=== PATIENT | female | born 1995 | race Caucasian/White ===

== ENCOUNTER 2017-04-10 20:35 | Inpatient (IN) | END 2017-04-12 21:00 | disposition home or self-care (01) | DRG 761 | DX: N83.202 Unspecified ovarian cyst, left side (principal) ==

== ENCOUNTER 2017-04-28 01:32 | Emergency (ER) | payer OTHER ==
[~2017-04-28] VITALS: Ht 162.6 cm; Wt 67.0 kg
[~2017-04-28 01:32] MED LIST: CIPR500T4 PO; ONDA4TAB8 PO
[2017-04-28 01:35] VITALS: Ht 162.6 cm; Wt 67.0 kg
[2017-04-28] MEDS ORDERED: KETOROLAC 60 MG INJ IM STA (03:58)
[2017-04-28] MEDS ORDERED: HYDROCODONE/APAP (5/325) TAB PO ONE (05:00)
[2017-04-28 05:22] LABS: ADD UMIC YES; UR ASCORBIC ACID NEGATIVE (NEGATIVE); UR BILIRUBIN (Dip) NEGATIVE (NEGATIVE); UR BLOOD (Dip) 3+ mg/dL (NEGATIVE); UR CLARITY CLEAR (CLEAR); UR COLOR YELLOW (YELLOW); UR GLUCOSE (Dip) NEGATIVE (NEGATIVE); UR KETONES (Dip) NEGATIVE (NEGATIVE); UR LEUKOCYTE ESTERASE (Dip) NEGATIVE Leu/ul (NEGATIVE); UR NITRITE (Dip) NEGATIVE (NEGATIVE); UR RBC 50 /HPF (0-5); UR SPECIFIC GRAVITY (Dip) 1.013 (1.003-1.030); UR SQUAMOUS EPITHELIAL CELL FEW /HPF (FEW); UR TOTAL PROTEIN (Dip) NEGATIVE (NEGATIVE); UR UROBILINOGEN (Dip) NEGATIVE (NEGATIVE)
[2017-04-28] MEDS ORDERED: traMADol 50 MG TAB PO ONE (05:30)
--- NOTE | 2017-04-28 06:46 | ERD ---
ER Documentation Chief Complaint Date/Time DATE: 04/28/17 TIME: 06:39 Chief Complaint pelvic pain x 3 days HPI This is a 21 y.o female that presents to the ER with pelvic pain for the last 3 days. Patient states that she has pmhx of endometriosis, and that she got her period 3 days ago causing her severe pelvic cramping. Pain is intermittent and non radiating. She denies any fever or chills. She denies any vaginal discharge or urinary frequency or dysuria. ROS All systems reviewed and are negative except as per history of present illness. Medications Home Meds Active Scripts Ciprofloxacin Hcl* (Ciprofloxacin Hcl*) 500 Mg Tablet, 500 MG PO BID for 7 Days , #14 TAB Prov:CHEMA ACUNA MD 04/12/17 Ondansetron Hcl* (Zofran*) 4 Mg Tablet, 4 MG PO Q6H Y for NAUSEA AND OR VOMITING for 10 Days, TAB Prov:CHEMA ACUNA MD 04/12/17 Allergies Allergies: Coded Allergies: Ceftriaxone (Verified Allergy, Mild, RASH, 02/24/08) PMhx/Soc History of Surgery: Yes (lap removal of uterine cyst) Anesthesia Reaction: No Hx Neurological Disorder: No Hx Respiratory Disorders: Yes (asthma) Hx Cardiac Disorders: No Hx Psychiatric Problems: No Hx Miscellaneous Medical Probl: Yes (endometriosis) Hx Alcohol Use: No Hx Substance Use: No Hx Tobacco Use: No Smoking Status: Never smoker Physical Exam Vitals Vital Signs Date Time Temp Pulse Resp B/P Pulse Ox O2 Delivery O2 Flow Rate FiO2 04/28/17 01:35 98.3 75 20 104/58 98 Physical Exam Const: [] Head: Atraumatic ENT: Normal External Ears, Nose and Mouth Resp: Clear to auscultation bilaterally Cardio: Regular rate and rhythm, no murmurs Abd: Soft, non tender, non distended. Normal bowel sounds, patient is TTP to the left lower pelvic area Skin: No petechiae or rashes Back: No midline or flank tendernes Neur: Awake and alert Psych: Normal Mood and Affect Results 24 hrs Laboratory Tests Test 04/28/17 04:30 Urine Color YELLOW Urine Clarity CLEAR Urine pH 7.0 Urine Specific Collins 1.013 Urine Ketones NEGATIVEmg/dL Urine Nitrite NEGATIVEmg/dL Urine Bilirubin NEGATIVEmg/dL Urine Urobilinogen NEGATIVEmg/dL Urine Leukocyte Esterase NEGATIVELeu/ul Urine Microscopic RBC 50/HPF Urine Microscopic WBC 1/HPF Urine Squamous Epithelial Cells FEW/HPF Urine Hemoglobin 3+mg/dL Urine Glucose NEGATIVEmg/dL Urine Total Protein NEGATIVEmg/dl Urine Test NEGATIVE Current Medications Medications (Trade) Dose Ordered Sig/Jennifer Route PRN Reason Start Time Stop Time Status Last Admin Dose Admin Ketorolac Tromethamine (Toradol) 60 mg ONCE STAT IM 04/28/17 03:58 04/28/17 04:00 DC 04/28/17 04:34 Acetaminophen/ Hydrocodone Bitart (Alcove (5/325)) 1 tab ONCE ONCE PO 04/28/17 05:00 04/28/17 05:01 DC Tramadol HCl (Ultram) 50 mg ONCE ONCE PO 04/28/17 05:30 04/28/17 05:31 DC Procedures/MDM Patient was stable throughout ER course, she was comfortably sitting in exam room and in results waiting area. She was given Toradol for pain and stated this did not help her pain. I ordered Alcove for the patient and patient said she took this at home and that it did not work for her. Patient started hysterically crying and screaming stating she was in a lot of pain. I ordered tramadol for patient, however patient said her OB gave her Tramadol and that it didn't help either. Patient is able to have a conversation without any pain. Patient went back to results waiting area and began to scream and cry in pain. Ultrasound of the pelvis was ordered to r/o ovarian torsion as patient did have a significant cyst in the last MRI she had. Patient eloped before ultrasound. Patient did exhibit drug seeking behavior and did not feel comfortable giving patient IM narcotic medication. She was afebrile and her physical examination was benign. Suspicion for acute abdominal emergency is low, however since patient eloped cannot be ruled out. Departure Diagnosis: Primary Impression: Acute pain in female pelvis Additional Impression: Drug-seeking behavior Condition: LAUREN Rendon Apr 28, 2017 06:46
== END 2017-04-28 05:57 | disposition left against medical advice (07) ==
LOC: FTE 01:32
DX: R10.2 Pelvic and perineal pain (principal); J45.909 Unspecified asthma, uncomplicated; Z76.5 Malingerer [conscious simulation]
CPT/HCPCS: 81001; 84703; 96372; J1885; Z7502

== ENCOUNTER 2017-05-03 06:24 | Emergency (ER) | payer OTHER ==
[~2017-05-03] VITALS: Ht 154.9 cm; Wt 66.5 kg
[2017-05-03 06:37] VITALS: Ht 154.9 cm; Wt 66.5 kg
[2017-05-03] MEDS ORDERED: KETOROLAC 60 MG INJ IM STA (07:49)
[2017-05-03 08:23] LABS: URINE BLOOD (Dip) POC Trace-intact (NEGATIVE)
[2017-05-03] MEDS ORDERED: IBUP800T25 PO (08:35)
[2017-05-03] MEDS ORDERED: ONDANSETRON (ODT) 4 MG TAB ODT STA (08:50)
[2017-05-03] MEDS ORDERED: morphine 10 MG INJ IM ONE (09:00)
[2017-05-03] MEDS ORDERED: DOCU-144 PO (09:03)
--- NOTE | 2017-05-03 09:08 | ERD ---
ER Documentation Chief Complaint Date/Time DATE: 05/03/17 TIME: 09:05 Chief Complaint lower pelvic pain dx yesterday with ovarian cyst HPI Endometriosis and ovarian cysts present ED today with lower pelvic pain 4 days. Patient states that the pain is cramping like, comes in waves. She usually gets this type of cramps with her menstrual cycle. She finished her cycle yesterday. She uses tramadol, Tylenol No. 3, and Eaton at home for pain control. But none had helped. She was at [facility] this morning, and received a transabdominal pelvic ultrasound. She was told ultrasound was normal. Patient states that she left [facility] because her insurance was capitated to this hospital. Denies fever or chills. Denies vomiting or diarrhea. Denies pain worse with movement. ROS All systems reviewed and are negative except as per history of present illness. Medications Home Meds Active Scripts Docusate Sodium* (Colace*) 100 Mg Capsule, 100 MG PO TID Y for CONSTIPATION, # 30 CAP Prov:RAJESH LUNA NP 05/03/17 Ibuprofen* (Motrin*) 800 Mg Tab, 800 MG PO Q6H Y for PAIN AND OR ELEVATED TEMP, #30 TAB Prov:RAJESH LUNA NP 05/03/17 Ciprofloxacin Hcl* (Ciprofloxacin Hcl*) 500 Mg Tablet, 500 MG PO BID for 7 Days , #14 TAB Prov:CHEMA ACUNA MD 04/12/17 Ondansetron Hcl* (Zofran*) 4 Mg Tablet, 4 MG PO Q6H Y for NAUSEA AND OR VOMITING for 10 Days, TAB Prov:CHEMA ACUNA MD 04/12/17 Allergies Allergies: Coded Allergies: ceftriaxone (Verified Allergy, Mild, RASH, 05/03/17) PMhx/Soc History of Surgery: Yes (lap removal of uterine cyst) Anesthesia Reaction: No Hx Neurological Disorder: No Hx Respiratory Disorders: Yes (asthma) Hx Cardiac Disorders: No Hx Psychiatric Problems: No Hx Miscellaneous Medical Probl: Yes (endometriosis) Hx Alcohol Use: No Hx Substance Use: No Hx Tobacco Use: No Smoking Status: Never smoker Physical Exam Vitals Vital Signs Date Time Temp Pulse Resp B/P Pulse Ox O2 Delivery O2 Flow Rate FiO2 05/03/17 06:37 97.9 86 18 112/70 95 Physical Exam General: Well-developed, well-nourished, conscious and coherent, in no distress Skin: Warm and dry without rash, good texture and turgor Head: Normocephalic without evidence of trauma Eyes: Sclera and conjunctivae normal; pupils equal, round, and reactive to light; extraocular movements are intact Neck: Supple without meningismus or adenopathy. Carotids are equal. Trachea midline. No bruits or JVD Chest: Normal AP diameter. Good expansion without retractions. Nontender. Lungs are clear to auscultate bilaterally with good tidal volume Heart: Regular rate and rhythm. No murmur, rub, or gallops heard Abdomen: Soft and nontender without masses, guarding, or rebound. Bowel sounds are active. No hepatosplenomegaly Back: Without spinal or CVA tenderness Pelvis: Nontender to palpation and stable to compression Extremities: Full range of motion. Good strength bilaterally. No clubbing, cyanosis, or edema. Peripheral pulses are intact. Sensation intact Neuro: Alert and oriented 4, GCS 15. Cranial nerves grossly intact. Motor and sensory exams nonfocal. Moves all extremities. Speech clear. Gait normal Results 24 hrs Laboratory Tests Test 05/03/17 08:30 Bedside Urine pH (LAB) 7.5 Bedside Urine Protein (LAB) Negative Bedside Urine Glucose (UA) Negative Bedside Urine Ketones (LAB) Negative Bedside Urine Blood Trace-intact Bedside Urine Nitrite (LAB) Negative Bedside Urine Leukocyte Esterase (L Negative Current Medications Medications (Trade) Dose Ordered Sig/Jennifer Route PRN Reason Start Time Stop Time Status Last Admin Dose Admin Ketorolac Tromethamine (Toradol) 60 mg ONCE STAT IM 05/03/17 07:49 05/03/17 07:50 DC Morphine Sulfate (morphine) 4 mg ONCE ONCE IM 05/03/17 09:00 05/03/17 09:01 DC 05/03/17 08:55 Ondansetron HCl (Zofran Odt) 4 mg ONCE STAT ODT 05/03/17 08:50 05/03/17 08:52 DC 05/03/17 08:55 Procedures/MDM Well-appearing 21-year-old female with history of endometriosis and ovarian cysts present ED with pelvic pain 4 days. Her pain is intermittent, her pelvic ultrasound at a different hospital this morning was negative for normal. Low suspicion for ovarian torsion or ruptured ovarian cyst. Patient was calm during conversation, but writhing in pain while I am not talking to her. She refused Toradol and Eaton. She is states that the only thing that helps her pain is Dilaudid IV. Her behavior is highly suspicious for drug-seeking. Her mother insists that patient had tried to manage her pain at home. Only comes here when the pain is so severe that she can no longer manage the pain. She had done lifestyle modifications, Depo-Provera injections in the past. She is off Depo-Provera at this time, just started OCP yesterday. Morphine 4 mg IM and Zofran 4 mg ODT given to the patient in the ED for pain. Patient showed pain relief after morphine. Patient appears well, stable for discharge and outpatient management. Medical decision making shared with patient and family. Education provided to patient and family. Patient and family expressed understanding of the plan. Medications on discharge: Ibuprofen. Follow-up: Primary care provider in 2-3 days or return to ED if worse. Disclaimer: Inadvertent spelling and grammatical errors are likely due to EHR/ dictation software use and do not reflect on the overall quality of patient care. Also, please note that the electronic time recorded on this note does not necessarily reflect the actual time of the patient encounter. Departure Diagnosis: Primary Impression: Pelvic pain Additional Impression: Drug-seeking behavior Condition: Stable Patient Instructions: What Is Endometriosis?, Living with Endometriosis Referrals: NON DESTRUCTIVE EVALUATION TECHNICIAN [place] [address] [facility] [address] [place], [place] [phone] OFFICE FAX JAMES VEGA [address] [place], [place] [id number] [address] [place] [address] [place], [place] [id number] MADDY GARCÍA [id number] [facility], [facility] [address] [address] [address] [place], [place] [phone] [facility] [address] [place], [place] [phone] [address] [facility] [id number] - [address], [facility] [phone], [place] [address] [facility]. [address], [facility] [phone] [facility] [address] [place], [place] [phone] Additional Instructions: FOLLOW UP WITH YOUR PRIMARY CARE PHYSICIAN or your engineering department chair. Return to this facility if you are not improving as expected. RAJESH LUNA NP May 03, 2017 09:08
[2017-05-03 09:16] VITALS: BP 103/62; PULSE 70; RESP 16; TEMP 99
== END 2017-05-03 09:27 | disposition home or self-care (01) ==
LOC: FTE 06:24
DX: R10.2 Pelvic and perineal pain (principal); J45.909 Unspecified asthma, uncomplicated; Z76.5 Malingerer [conscious simulation]
CPT/HCPCS: 81003; 96372; J2270; Z7502; Z7610